=== PATIENT | male | born 1975 | race Two or more races ===

== ENCOUNTER 2024-10-22 18:33 | Emergency (ER) | payer OTHER, SELFPAY ==
[2024-10-22 19:29] VITALS: BP 153/91; PULSE 82; RESP 18; TEMP 37.2; O2SAT 96; BMI 41.5
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
[2024-10-22] MEDS: HYDROcodone/APAP 5/325 TABLET 1 TAB PO (19:52)
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
== END 2024-10-22 21:04 | disposition home or self-care (01) ==
PROVIDERS: Emergency Provider Emergency Medicine; PCP Internal Medicine
DX: S20.219A Contusion of unspecified front wall of thorax, initial encounter (principal); S19.9XXA Unspecified injury of neck, initial encounter; S09.90XA Unspecified injury of head, initial encounter; V89.2XXA Person injured in unspecified motor-vehicle accident, traffic, initial encounter
CPT/HCPCS: 70450; 71250; 72125; 74176; 99284; A9270

== ENCOUNTER 2025-07-25 00:42 | Emergency (ER) | payer BC, SELFPAY ==
[2025-07-25 00:43] VITALS: BMI 43.5
== END 2025-07-25 01:08 | disposition left against medical advice (07) ==
PROVIDERS: Emergency Provider Emergency Medicine
DX: Z53.21 Procedure and treatment not carried out due to patient leaving prior to being seen by health care provider (principal)
CPT/HCPCS: 99281